=== PATIENT | male | born 1940 | race Caucasian/White ===

== ENCOUNTER 2022-05-03 14:58 | Inpatient (IN) | payer OTHER ==
[~2022-05-03] VITALS: Ht 165.1 cm; Wt 64.2 kg
[2022-05-03 15:19] LABS: BASOPHILS ABSOLUTE AUTO 0.08 K/mm3 (0.00-0.23); BASOPHILS PERCENT AUTO 1 % (0-2); EOSINOPHILS ABSOLUTE AUTO 0.29 K/mm3 (0.00-0.68); EOSINOPHILS PERCENT AUTO 3 % (0-6); Hematocrit 47.5 % (37.0-53.0); Hemoglobin 15.4 g/dL (13.5-17.5); IMMATURE GRAN ABSOLUTE AUTO 0.02 K/mm3 (0.00-0.10); IMMATURE GRAN PERCENT AUTO 0 % (0-1); LYMPHOCYTES ABSOLUTE AUTO 3.47 K/mm3 (0.84-5.20); LYMPHOCYTES PERCENT AUTO 35 % (21-46); MONOCYTES ABSOLUTE AUTO 0.48 K/mm3 (0.16-1.47); MONOCYTES PERCENT AUTO 5 % (4-13); Mean Corpuscular HGB 29.7 pg (26.0-34.0); Mean Corpuscular HGB Conc 32.4 g/dL (31.5-36.5); Mean Corpuscular Volume 92 fL (80-100); NEUTROPHILS ABSOLUTE AUTO 5.57 K/mm3 (1.96-9.15); NEUTROPHILS PERCENT AUTO 56 % (41-73); Platelet Count 262 K/mm3 (150-400); RDW Coefficient Variation 12.6 % (11.7-14.2); RDW Standard Deviation 42.7 fL (35.1-46.3); Red Blood Cell Count 5.18 M/mm3 (4.30-5.90); White Blood Cell Count 9.91 K/mm3 (4.00-11.30)
[2022-05-03 15:42] LABS: Alanine Aminotransfer (ALT/SGP 21 U/L (12-78); Albumin, Blood 3.7 g/dL (3.4-5.0); Albumin/Globulin Ratio 0.9 (0.8-1.8); Alk Phos 91 U/L (50-136); Anion Gap 10 mmol/L (6-16); Aspartate Aminotrans (AST/SGOT 22 U/L (12-37); Bilirubin, Total 0.5 mg/dL (0.1-1.0); Blood Urea Nitrogen 28 mg/dL (8-24); CHOL/HDL RATIO 4.3; CO2, Blood 21 mmol/L (21-32); Calcium, Blood 9.5 mg/dL (8.5-10.1); Chloride, Blood 109 mmol/L (98-108); Cholesterol 227 mg/dL (50-200); Glomerular Filtration Rate 76 (60-); Glucose, Blood 148 mg/dL (70-99); HDL Cholesterol 53 mg/dL (>39); LDL/HDL RATIO 2.8; Low Density Lipoprotein Chol 147 mg/dL (0-110); Magnesium, Blood 2.1 mg/dL (1.6-2.4); Potassium, Blood 4.1 mmol/L (3.5-5.5); Sodium, Blood 140 mmol/L (136-145); Total Protein, Blood 7.7 g/dL (6.4-8.2); Triglycerides 136 mg/dL (30-160); Very Low Density Lipoprot Chol 27 mg/dL (6-32)
[2022-05-03 15:51] LABS: International Normalized Ratio 1.03; Prothrombin Time Results 10.8 Sec (9.7-11.5)
--- NOTE | 2022-05-03 18:39 | NUR ---
Pt code blue with cpr post heart cath. pt awake post cpr started on heparin drip. pt on non rebreather getting nauseated. assited with airway monitoring. pt treated for nausea. physician at bedside he is having chest pain. plan is to monitor may go back to cardiac cath lab technologist. spoke wbriefly with family about paln of acre and nadya future planning. pt keps score is 40% guarded.
[2022-05-03 18:42] LABS: Bun/Creatinine Ratio 35.4 (12.0-20.0); Creatinine, Blood 0.62 mg/dL (0.60-1.20); Potassium, Blood 3.2 mmol/L (3.5-5.5)
[2022-05-03 18:45] LABS: Calcium, Blood 6.3 mg/dL (8.5-10.1)
--- NOTE | 2022-05-03 18:57 | NUR ---
ICU ADMISSION / CODE BLUE: REPORT RECEIVED FROM QUE RUIZ IN ED. STEMI PT WILL BE COMING TO ICU-10 FROM CELLULAR PHONE REPAIRER. PT ARRIVED TO ROOM ICU-10 AT APPROX 1643. BEDSIDE REPORT OBTAINED FROM CURTIS Reveles RN. PER REPORT, THE PT HAS RECEIVED ONE STENT TO MID LAD & HAS A TR BAND IN PLACE TO RIGHT WRIST W/ 12 CC AIR, PLACED AT 1630. PLAN IS FOR HEPARIN DRIP TO BEGIN AT APPROX 2230, 6 HRS AFTER TR BAND PLACED. THIS RN AT BEDSIDE W/ PT's & SON, COMPLETING ADMISSION WHEN PT BECAME UNRESPONSIVE & PULSELESS, CODE BLUE CALLED & DETAILS BELOW. 1721 - MONITOR BEGINS ALARMING FOR FATAL ARRHYTHMIA, THIS RN NOTES V-TACH ON MONITOR. AT THIS TIME, THE PT IS NO LONGER RESPONDING TO THIS RN's QUESTIONS & APPEARS PALE IN COLOR. NO CAROTID PULSE PRESENT WHEN CHECKED BY THIS RN. HEAD OF BED LOWERED & CODE BLUE CALLED. 1722 - SHAQ Orozco RN, PRESENT AT BEDSIDE & CPR INITIATED. THE PT IS NOTED TO BE GRUNTING W/ COMPRESSIONS BUT OTHERWISE REMAINS UNRESPONSIVE. 1723 - CRASH CART TO BEDSIDE. ZOLL PADS & BACKBOARD PLACED, CPR RESUMED. KOKO Johnson RT, AT BEDSIDE & BEGINS BAGGING PT. O2 SATS 70s. 1724 - RHYTHM/ PULSE CHECK. TORSADES NOTED ON ZOLL, NO PALPABLE PULSE & PT REMAINS UNRESPONSIVE, CPR RESUMED. 1725 - ZOLL CHARGED AT 150J & SHOCK DELIVERED. DR WORKMAN TO BEDSIDE. 1726 - ROSC OBTAINED. SR W/ INVERTED T-WAVE, HR 80s, NOTED ON MONITOR. PT PLACED ON 10L NRB & PLACED INTO RECOVERY POSITION. HE IS NOW MUMBLING & ALERT TO SELF, FOLLOWING DIRECTIONS. 1727 - 300 MG AMIODARONE GIVEN PER DR WORKMAN. 1730 - EKG COMPLETED. 173 - TROPONIN & BMP ORDERED. LAB AT BEDSIDE TO DRAW. 173 - JUNIOR ETIENNE, HAS TAKEN VERBAL ORDER FROM DR WORKMAN TO BEGIN HEPARIN DRIP NOW. THE PT CURRENTLY REMAINS RESPONSIVE, BUT DROWSY. HE IS ANSWERING QUESTIONS & APPROPRIATELY RESPONSIVE. CHEST PAINFUL TO PALPATION R/T CPR, BUT THE PT STS THAT STERNAL PAIN HE EXPERIENCED THIS MORNING IS STILL LOW COMPARED TO PREPROCEDURE, APPROX 4/[address] WORKMAN WOULD LIKE LIDOCAINE DRIP INTITATED IF THE PT BEGINS TO HAVE CONSISTENT PVCs, CALL FOR ORDERS. THIS RN REMAINS AT BEDSIDE TO MONITOR PT WHILE FINISHING DOCUMENTATION.
[2022-05-03 20:27] LABS: Magnesium, Blood 3.2 mg/dL (1.6-2.4)
--- NOTE | 2022-05-03 20:28 | NUR ---
ASSUMED CARE. REPORT RECEIVED FROM MATT GREY. PT RESTING IN BED, FAMILY AT BEDSIDE. ON 02 VIA NC, 10 L/MIN. PT HAS ZOLL PADS IN PLACE, ZOLL AT BEDSIDE. IV ACCESS IN L/WRIST X2, HEPARIN RUNNING AT 15 U/KG/HR. NS TKO AT 15 ML/HR. TR BAND IN PLACE ON R/WRIST, NO ECCHYMOSIS OR SWELLING ATT. VS STABLE, WILL CONTINUE TO MONITOR.
[2022-05-03 20:31] LABS: Bun/Creatinine Ratio 30.5 (12.0-20.0); Creatinine, Blood 0.82 mg/dL (0.60-1.20); Potassium, Blood 4.3 mmol/L (3.5-5.5)
[2022-05-04 04:25] LABS: Hemoglobin 13.5 g/dL (13.5-17.5); Mean Corpuscular HGB 29.7 pg (26.0-34.0); Mean Corpuscular HGB Conc 32.1 g/dL (31.5-36.5); Mean Corpuscular Volume 92 fL (80-100); Platelet Count 212 K/mm3 (150-400); RDW Coefficient Variation 12.8 % (11.7-14.2); RDW Standard Deviation 43.2 fL (35.1-46.3); Red Blood Cell Count 4.55 M/mm3 (4.30-5.90); White Blood Cell Count 12.15 K/mm3 (4.00-11.30)
[2022-05-04 04:51] LABS: Bun/Creatinine Ratio 25.5 (12.0-20.0); Calcium, Blood 7.7 mg/dL (8.5-10.1); Creatinine, Blood 0.82 mg/dL (0.60-1.20); Potassium, Blood 4.2 mmol/L (3.5-5.5)
--- NOTE | 2022-05-04 06:17 | NUR ---
SUMMARY. PT RESTED IN BED THROUGHOUT NIGHT, ON NC AT 6 L/MIN, ALERT AND ORIENTED. IV ACCESS IN L/ARM & L/WRIST. HEPARIN INFUSING AT 14 U/KG/HR, NS TKO. PT C/O CHEST PAIN WORSENING WITH INSPIRATION AND EXPIRATION DURING SHIFT, NO SIGNIFICANT CHANGES IN HEART RATE OR RHYTHM NOTED. ZOLL PADS STILL IN PLACE. DR. DANIELSON UPDATED W/LATEST LABS, NO NEW ORDERS. VS STABLE THROUGHOUT SHIFT, SEE ASSESSMENT FOR FURTHER DETAILS. WILL CONTINUE TO MONITOR AND REPORT OFF TO DAYSHIFT RN.
--- NOTE | 2022-05-04 08:34 | NUR ---
ASSUMED CARE REPORT FROM CHRISTINE GREY AT 0700. PT RESTING IN BED. A&OX 3. FOLLOWS COMMANDS. REPORTS POOR SLEEP LAST NOC. REPORTS SUBSTERNAL PAIN, WORSE c INSPIRATION OR PALPATION. 04/05. MEDICATED c FENTANYL. LUNGS CLEAR. 3L VIA NC, O2 SATS >95%. SB ON MONITOR, 13 BEAT RUN VTACH THIS AM. PT ASYMPTOMATIC. HTN NOTED. WILL DISCUSS METOPROLOL c DR WORKMAN REGARDING HR. ECHO COMPLETE THIS AM. RIGHT RADIAL ACCESS SITE, NO SWELLING OR ECCHYMOSIS. ARM BOARD PLACED. HEPARIN GTT AT 14 UNITS/KG/HR. WILL CONTINUE TO MONITOR.
--- NOTE | 2022-05-04 17:46 | NUR ---
SHIFT SUMMARY NO ACUTE CHANGES THIS SHIFT. NO FURTHER EPISODES OF ECTOPY. SB ON MONITOR, RATE 50'S. BP STABLE. ON RA. PT DROWSY MOST OF SHIFT. STATES HE HAS NO ENERGY. HEPARIN GTT CONTINUES AT 14 UNITS/KG/HR. NO CHANGE TO RIGHT RADIAL SITE. INDEPEDENT IN BED. WILL CONTINUE TO MONITOR UNTIL REPORT TO ONCOMING NURSE.
--- NOTE | 2022-05-04 19:10 | NUR ---
ASSUMED CARE. REPORT RECEIVED FROM MATT RN. PATIENT RESTING IN BED ATT. ALERT AND ORIENTED. HEPARIN GTT RUNNING AT 14 U/KG/HR. VITAL SIGNS STABLE ATT, WILL CONTINUE TO MONITOR.
--- NOTE | 2022-05-05 01:30 | NUR ---
EKG CHANGES: EKG CHANGES NOTICED AND EKG OBTAINED. DR. WORKMAN LOOKED AT EKG AND SAID THAT PT WILL HAVE ST ELEVATIONS DUE TO ANEURYSM OF LEFT VENTRICAL. ST ELVATIONS ARE INCREASING FROM LAST EKG; DR. WORKMAN COMPARED TO PREVIOUS EKGS AND NOT CONCERNED AT THIS TIME.
[2022-05-05 03:44] LABS: Hematocrit 46.2 % (37.0-53.0); Hemoglobin 15.4 g/dL (13.5-17.5); Mean Corpuscular HGB 29.7 pg (26.0-34.0); Mean Corpuscular HGB Conc 33.3 g/dL (31.5-36.5); Mean Corpuscular Volume 89 fL (80-100); Mean Platelet Volume 10.2 fL (9.1-12.4); Platelet Count 230 K/mm3 (150-400); RDW Coefficient Variation 12.7 % (11.7-14.2); RDW Standard Deviation 41.9 fL (35.1-46.3); Red Blood Cell Count 5.18 M/mm3 (4.30-5.90); White Blood Cell Count 17.63 K/mm3 (4.00-11.30)
[2022-05-05 04:05] LABS: Bun/Creatinine Ratio 18.3 (12.0-20.0); Calcium, Blood 8.9 mg/dL (8.5-10.1); Creatinine, Blood 0.98 mg/dL (0.60-1.20); Potassium, Blood 4.4 mmol/L (3.5-5.5)
--- NOTE | 2022-05-05 06:10 | NUR ---
SHIFT SUMMARY. PT RESTED IN BED THROUGHOUT SHIFT, ABLE TO OPERATE BED CONTROLS AND SHIFT WEIGHT ON HIS OWN. ALERT AND ORIENTED, ON ROOM AIR. HEPARIN GTT AT 14 U/KG/HR, NO CHANGES. SMALL CHANGE IN ST ELEVATION NOTED ON REVIEW OF MONITOR LEADS, STAT EKG OBTAINED AND SHOWN TO DR. DANIELSON, NO NEW ORDERS. VS STABLE THROUGHOUT SHIFT. SEE ASSESSMENT FOR FURTHER DETAILS. WILL CONTINUE TO MONITOR AND REPORT OFF TO DAYSHIFT RN.
--- NOTE | 2022-05-05 09:09 | NUR ---
ASSUMED CARE REPORT FROM CHRISTINE GREY AT 0700. PT RESTING IN BED. WAKES c VERBAL STIMULI. A&OX 3. FOLLOWS COMMANDS. STATES HE IS FEELING BETTER THAN YESTERDAY, LESS CHEST WALL PAIN. REQUESTING MORE SLEEP, PROVIDED. LUNGS CLEAR, RA. SR ON MONITOR, RATE 60'S. BP STABLE. HEPARIN GTT AT 14 UNITS/KG/HR. PLAN TO TRANSITION TO ELIQUIS THIS SHIFT. REFUSED BREAKFAST. INDEPENDENT IN BED. ABLE TO MAKE NEEDS KNOWN. WILL CONTINUE TO MONITOR.
--- NOTE | 2022-05-05 17:10 | NUR ---
SHIFT SUMMARY NO ACUTE CHANGES THIS SHIFT. STATUS CHANGED TO PCU. NO ECTOPY THIS SHIFT. BP STABLE. SR, RATE 60 WHEN SLEEPING, 90'S WHEN UP. PT WORKED c P THERAPY TODAY. TOLERATED WELL. UP TO CHAIR. REPORTS CHEST WALL PAIN IMPROVED. PLAN FOR HEPARIN GTT TO BE D/C'D, CHANGE TO ELIQUIS. AWAITING POSSIBLE LIFE VEST PLACEMENT AND D/C TOMORROW. WILL CONTINUE TO MONITOR UNTIL REPORT TO ONCOMING NURSE.
--- NOTE | 2022-05-05 19:45 | NUR ---
ASSUMPTION OF CARE PT IS ALERT AND ORIENTED SITTING UP IN RECLINER. VS WNL. NO COMPLAINTS OF CHEST PAIN/PRESSURE AT TIME OF ASSESSMENT. PT IS ROOM AIR OXYGEN SAT >95%. BP WNL. PT IS SL AT THIS TIME. PT IS ON AIR CONDITIONING MECHANIC INDUSTRIAL SR-SB. HEPARIN GTT WAS DISCONTINUED ON PRIOR SHIFT AND PT WILL BEGIN ON ELIQUIS IN THE AM.
--- NOTE | 2022-05-06 06:15 | NUR ---
SHIFT SUMMERY PT VS HAVE BEEN STABLE THROUGHTOUT THE NIGHT. NO COMPLAINTS OF CHEST PAIN/PRESSURE. HE IS ALERT AND ORIENTED, VOIDING TO URINAL. NO ACUTE CHANGES THIS SHIFT
--- NOTE | 2022-05-06 08:49 | NUR ---
PT IN WORKING WITH PATIENT NOW, ALERT AND ORIENTED, MAKES NEEDS KNOWN, USES CALL LIGHT, DENIES PAIN. DR PEACE ROUNDED THIS AM, WAITNG FOR LIFE VEST BEFORE PATIENT CAN GO HOME, CASE MANAGEMENT WORKING ON THE LIFE VEST
--- NOTE | 2022-05-06 15:48 | NUR ---
REPORTED TO DR PEACE, PATIENT, AND PATIENTS , VEST WILL NOT BE HERE UNTIL TOMORROW AM AT 0800, DR CAMP ON FOR CARIODLOGY ON 05/07/2022, DR CAMP TO DISCHARGED PATIENT TOMORROW ONCE THE PATIENT HAS THE VEST
--- NOTE | 2022-05-06 16:24 | NUR ---
PATIENT ALERT AND ORIENTED, NO CONFUSION, LS CLEAR DIMINISHED BASES, STAND BY ASSIST FOR AMBULATION AND TRANSFER, STEADY GAIT. DENIES CP, HEART RATE NSR 70S, PATIENT WILL BE HAVING THE ZOLL VEST DELIVERED AND PATIENT EDUCATION TOMORROW AM AT 0800 05/06/2022. SMALL APPETITE, BSU INDEPEDENTLY, REPOSITIONS INDEPENDENTLY, HELPFUL AT BEDSIDE, PATIENT PLEASANT TO CARE.
--- NOTE | 2022-05-06 17:28 | NUR ---
TRANSFERED PATIENT TO PCU 15, REPORT TO YOSELIN RN, ACCOMPANIED PATIENT
--- NOTE | 2022-05-06 17:56 | NUR ---
TRANSFER UPDATE REPORT RECIEVED FROM CHECKING CLERK AT 1704. PT ARRIVED TO UNIT AT 1720 VIA WHEELCHAIR AND ON RA. PT ABLE TO TRANSFER SELF TO AND FROM WHEELCHAIR, SBA. PT A/O AND COOPERTIVE OF CARE. LUNGS CLEAR TO DIM. NO REPORT OF PAIN AT THIS TIME, PT DID STATE "SOMETIMES WHEN I BREATH IN DEEP I GET PAIN IN MY MID CHEST." WHEN ASKED IF HE CURRENTLY FEELS THE MID STERNAL PAIN, PET DENIED PAIN. PT INSTRUCTED TO CALL FOR TOILETING ASSISNCE, PT VERBGALLY AGREED. NO REPORT OF SOB.
--- NOTE | 2022-05-07 06:18 | NUR ---
SHIFT SUMMARY PT ALERT AND ORIENTED. BP STABLE. AFEBRILE. HR 70-90'S SR. ON RA SATS OVER 96%. ASLEEP ENTIRE NIGHT, NO NEEDS, OR COMPLAINTS OF PAIN OR DISCOMFORT. VOIDS WITH BEDSIDE URINAL. IN BED WITH CALL ALARM AT SIDE, WILL CONTINUE TO MONITOR UNTIL REPORT GIVEN TO DAYSHIFT RN
--- NOTE | 2022-05-07 08:39 | NUR ---
Yurpy JOSE NOTED PT HAD ST ELEVATIONS LAST NIGHT AT 1900 AND REPORTED TO RN. EKG COMPLETED AND COMPARED TO PREVIOUS EKG WITH NO CHANGES. PT IS CURRENTLY ASYMPTOMATIC, DENIES CP. DR. WORKMAN NOTIFIED AND SHE REPORTED TO CONTINUE WITH PLAN TO DC TODAY POST LIFE VEST APPLICATION AND TO CALL DR. SMITH ONCE LIFE VEST IS PLACED SO HE CAN COMPLETE DC.
--- NOTE | 2022-05-07 18:17 | NUR ---
SHIFT SUMMARY: PT A/O X 4 IND IN ROOM, PLEASANT AND COOPERATIVE WITH CARES. PT HAD LIFE VEST APPLIED THIS AM AND INSTRUCTED ON USE BY REP. PT HAS BEEN RESTING IN BED WITH FAMILY PRESENT ALL DAY. PT HAS HAD NO C/O CP ESCEPT WITH DEEP BREATHING WHICH HE REPORTS IS FROM HAVING CHEST COMPRESSIONS. PT REPORTS PAIN IS TOLERABLE. PT TO BE DC'D THIS EVENING ONCE DR. BHAGAT PLACES DISCHARGE ORDERS. WILL CONTINUE TO MONITOR UNTIL REPORT GIVEN TO NOC RN.
[2022-05-07] MEDS ORDERED: ATOR40TA PO (19:08)
[2022-05-07] MEDS ORDERED: Acetaminophen325 M1 PO (19:08)
[2022-05-07] MEDS ORDERED: ELIQUIS5 M2 PO (19:08)
[2022-05-07] MEDS ORDERED: CLOP75 PO (19:09)
[2022-05-07] MEDS ORDERED: METO25ER PO (19:09)
[2022-05-07] MEDS ORDERED: Lisinopril2.5 MG PO (19:10)
[2022-05-07] MEDS ORDERED: SPIR25 PO (19:10)
--- NOTE | 2022-05-07 20:51 | NUR ---
DISCHARGE SUMMARY PT W/ SPOUSE AND SON IN ROOM EDUCATED ABOUT MEDICATION REGIMEN, HOW TO OBTAIN MEDICATIONS FROM PHARMACY, AND SETTING UP FOLLOW UP APOINTMENTS WITH CARDIOLOGY AND PCP. TELEMETRY, IV, AND HOSPITAL EQUIPMENT REMOVED FROM PT. PT LEFT WITH STABLE AND IN GOOD SPIRITS. PT REFUSED WHEELCHAIR OUT OF HOSPITAL. WALKED OUT WITH SPOUSE AND SON, TO BE DRIVEN HOME AT 1945.
== END 2022-05-07 20:00 | disposition home or self-care (01) | DRG 246 ==
LOC: ER 14:58 → ICUW 15:15 → PCU 05-06 17:18
PROVIDERS: Emergency Medicine; ADMIT Internal Medicine Interventional Cardiology
PROC: 027034Z Dilation of Coronary Artery, One Artery with Drug-eluting Intraluminal Device, Percutaneous Approach (ICD-10-PCS; principal; 2022-05-03)
PROC: 4A023N7 Measurement of Cardiac Sampling and Pressure, Left Heart, Percutaneous Approach (ICD-10-PCS; 2022-05-03)
PROC: B2111ZZ Fluoroscopy of Multiple Coronary Arteries using Low Osmolar Contrast (ICD-10-PCS; 2022-05-03)
PROC: 5A12012 Performance of Cardiac Output, Single, Manual (ICD-10-PCS; 2022-05-03)
DX: I21.3 ST elevation (STEMI) myocardial infarction of unspecified site (principal); I46.9 Cardiac arrest, cause unspecified; I47.2 Ventricular tachycardia; I25.10 Atherosclerotic heart disease of native coronary artery without angina pectoris; Z87.891 Personal history of nicotine dependence; Z88.5 Allergy status to narcotic agent
CPT/HCPCS: 36415; 71045; 76937; 80048; 80053; 80061; 82330; 83735; 84484; 85025; 85027; 85347; 85520; 85610; 86850; 86900; 86901; 93005; 93010; 93454; 97110; 97116; 97162; 99152; 99153; 99285-25; A9270; C1725; C1769; C1874; C1887; C1894; C8929; C9600; C9606; J0153; J0171; J0282; J0461; J1644; J2250; J2405; J3010; J3475; J3480; J7030; J7040; Q9957; Q9967

== ENCOUNTER 2025-02-07 10:55 | Observation (INO) | payer OTHER ==
[~2025-02-07] VITALS: Ht 165.1 cm; Wt 68.0 kg
[~2025-02-07 10:55] MED LIST: ATOR40TA PO; Acetaminophen325 M1 PO; CLOP75 PO; ELIQUIS5 M2 PO; Lisinopril2.5 MG PO; METO25ER PO; SPIR25 PO
[2025-02-07 11:53] LABS: BASOPHILS ABSOLUTE AUTO 0.08 K/mm3 (0.00-0.23); BASOPHILS PERCENT AUTO 1 % (0-2); EOSINOPHILS ABSOLUTE AUTO 0.15 K/mm3 (0.00-0.68); EOSINOPHILS PERCENT AUTO 1 % (0-6); Hematocrit 47.1 % (37.0-53.0); Hemoglobin 15.6 g/dL (13.5-17.5); IMMATURE GRAN ABSOLUTE AUTO 0.03 K/mm3 (0.00-0.10); IMMATURE GRAN PERCENT AUTO 0 % (0-1); LYMPHOCYTES PERCENT AUTO 17 % (21-46); MONOCYTES ABSOLUTE AUTO 0.52 K/mm3 (0.16-1.47); MONOCYTES PERCENT AUTO 5 % (4-13); Mean Corpuscular HGB 30.4 pg (26.0-34.0); Mean Corpuscular HGB Conc 33.1 g/dL (31.5-36.5); Mean Corpuscular Volume 92 fL (80-100); Mean Platelet Volume 9.5 fL (9.1-12.4); NEUTROPHILS ABSOLUTE AUTO 7.78 K/mm3 (1.96-9.15); NEUTROPHILS PERCENT AUTO 75 % (41-73); Platelet Count 264 K/mm3 (150-400); RDW Standard Deviation 43.7 fL (35.1-46.3); Red Blood Cell Count 5.14 M/mm3 (4.30-5.90); White Blood Cell Count 10.36 K/mm3 (4.00-11.30)
[2025-02-07 12:29] LABS: Albumin, Blood 4.1 g/dL (3.4-5.0); Bilirubin, Total 0.7 mg/dL (0.1-1.0); Bun/Creatinine Ratio 20.4 (12.0-20.0); Calcium, Blood 9.3 mg/dL (8.5-10.1); Creatinine, Blood 1.08 mg/dL (0.60-1.20); Potassium, Blood 3.9 mmol/L (3.5-5.5); Total Protein, Blood 8.1 g/dL (6.4-8.2)
[2025-02-07] MEDS ORDERED: METO50ER PO (14:21)
[2025-02-07] MEDS ORDERED: Prinivil10 MG PO (14:22)
[2025-02-07] MEDS ORDERED: FLU VACC TS2024-25(6MOS UP)/PF 45 MCG/0.5 ML SYRINGE IM SCH (17:10)
[2025-02-07] MEDS ORDERED: Atorvastatin 40 MG Tab PO SCH (18:00)
[2025-02-07 19:32] VITALS: BP 128/69
[2025-02-07] MEDS ORDERED: Docusate Sodium 100 MG Cap PO SCH (21:00)
--- NOTE | 2025-02-07 21:40 | NUR ---
TRANSFER SUMMARY: PT AOX4 IND, CLAIMS TO JUST HAVE SOME L EYE PERIPHERAL DEFICIT BUT NO OTHER ACUTE ISSUES NOTED. NO FACIAL, OR STRENGTH DEFECITS NOTICED. PT ORIENTED TO ROOM, ABLE TO CALL APPROPRIATELY AND MAKE NEEDS KNOWN. VERY PLEASANT AND IN GOOD MOOD. BED IN LOWEST POSITION, CALL LIGHT IN REACH. CONTINUING CARE.
[2025-02-08 01:22] VITALS: BP 129/63
--- NOTE | 2025-02-08 04:38 | NUR ---
SHIFT SUMMARY: PT AOX4 IND IN THE ROOM. PT TOLERATING MEDICATION AND TREATMENT WELL. RUNNING S[place]US [place] MOST OF THE NIGHT, CONTINENT AND ABLE TO MAKE NEEDS KNOWN. VERY PLEASANT MOOD AND AFFECT. NO ACUTE EVENTS OVERNIGHT. PT SLEEPING IN BED, BED IN LOWEST POSITION, CALL LIGHT IN REACH. CONTINUING CARE.
[2025-02-08 04:55] VITALS: BP 141/59
[2025-02-08 06:32] LABS: BASOPHILS ABSOLUTE AUTO 0.05 K/mm3 (0.00-0.23); BASOPHILS PERCENT AUTO 1 % (0-2); EOSINOPHILS ABSOLUTE AUTO 0.34 K/mm3 (0.00-0.68); EOSINOPHILS PERCENT AUTO 4 % (0-6); Hematocrit 41.3 % (37.0-53.0); Hemoglobin 13.7 g/dL (13.5-17.5); IMMATURE GRAN ABSOLUTE AUTO 0.02 K/mm3 (0.00-0.10); IMMATURE GRAN PERCENT AUTO 0 % (0-1); LYMPHOCYTES ABSOLUTE AUTO 2.58 K/mm3 (0.84-5.20); LYMPHOCYTES PERCENT AUTO 27 % (21-46); MONOCYTES ABSOLUTE AUTO 0.86 K/mm3 (0.16-1.47); MONOCYTES PERCENT AUTO 9 % (4-13); Mean Corpuscular HGB 30.4 pg (26.0-34.0); Mean Corpuscular HGB Conc 33.2 g/dL (31.5-36.5); Mean Corpuscular Volume 92 fL (80-100); Mean Platelet Volume 9.9 fL (9.1-12.4); NEUTROPHILS ABSOLUTE AUTO 5.77 K/mm3 (1.96-9.15); NEUTROPHILS PERCENT AUTO 60 % (41-73); Platelet Count 238 K/mm3 (150-400); RDW Coefficient Variation 12.9 % (11.7-14.2); RDW Standard Deviation 43.2 fL (35.1-46.3); Red Blood Cell Count 4.51 M/mm3 (4.30-5.90); White Blood Cell Count 9.62 K/mm3 (4.00-11.30)
[2025-02-08 07:00] LABS: Alanine Aminotransfer (ALT/SGP 27 U/L (12-78); Albumin, Blood 3.3 g/dL (3.4-5.0); Alk Phos 89 U/L (50-136); Anion Gap 8 mmol/L (3-11); Aspartate Aminotrans (AST/SGOT 17 U/L (12-37); Bilirubin, Total 0.8 mg/dL (0.1-1.0); Blood Urea Nitrogen 20 mg/dL (8-24); Bun/Creatinine Ratio 18.2 (12.0-20.0); CHOL/HDL RATIO 2.5; CO2, Blood 25 mmol/L (21-32); Chloride, Blood 107 mmol/L (98-108); Cholesterol 126 mg/dL (50-200); Globulin, Blood 3.2 g/dL (2.2-4.0); Glomerular Filtration Rate 66 (60-); Glucose, Blood 88 mg/dL (70-99); HDL Cholesterol 50 mg/dL (>39); LDL/HDL RATIO 1.2; Low Density Lipoprotein Chol 59 mg/dL (0-110); Potassium, Blood 4.1 mmol/L (3.5-5.5); Sodium, Blood 136 mmol/L (136-145); Total Protein, Blood 6.5 g/dL (6.4-8.2); Triglycerides 86 mg/dL (30-160); Very Low Density Lipoprot Chol 17 mg/dL (6-32)
[2025-02-08 07:36] VITALS: BP 104/61
[2025-02-08] MEDS ORDERED: Aspirin 81 MG Chew PO SCH (09:00)
[2025-02-08] MEDS ORDERED: Clopidogrel Bisulfate 75 MG Tab PO SCH (09:00)
[2025-02-08] MEDS ORDERED: Metoprolol Succinate 50 MG TABCR PO SCH (09:00)
[2025-02-08] MEDS ORDERED: Enoxaparin 40 MG/0.4 ML SYR SC SCH (09:00)
[2025-02-08 11:11] VITALS: BP 129/73
[2025-02-08] MEDS ORDERED: ASPI81CH PO (14:36)
--- NOTE | 2025-02-08 15:35 | NUR ---
DISCHARGE 1445: WENT OVER DISCHARGE WITH THE PATIENT AND HIS FAMILY. IV AND TELE REMOVED. PATIENT GOT DRESSED AND COLLECTED HIS BELONGINGS. PATIENT WALKED OFF UNIT WITH FAMILY, NO SIGNS OR SYMPTOMS OF DISTRESS WITH DISCHARGE.
== END 2025-02-08 15:08 | disposition home or self-care (01) ==
LOC: ER 10:55 → ERHOLD 10:56 → MEDS 19:09
PROVIDERS: Student in an Organized Health Care Education/Training Program; ADMIT Internal Medicine
DX: I63.9 Cerebral infarction, unspecified (principal); H54.7 Unspecified visual loss; I25.10 Atherosclerotic heart disease of native coronary artery without angina pectoris; Z88.5 Allergy status to narcotic agent; Z79.899 Other long term (current) drug therapy; Z72.0 Tobacco use
CPT/HCPCS: 36415; 70450; 70496; 70498; 80053; 80061; 82947; 83036; 84443; 85025; 93005; 93010; 93306; 96372; 97161; 99285-25; A9270; G0378; J1650; Q9967